=== PATIENT | female | born 1950 | race Caucasian/White ===

== ENCOUNTER → 2018-10-26 | Emergency (ER) | payer OTHER ==
[~2018-10-26] VITALS: Ht 149.9 cm; Wt 97.5 kg
[~2018-10-26] MED LIST: COZAAR100 MG; EVISTA60 MG; FORTAMET1000 MG; NORVASC10 MG; ZIAC 10/6.25 MG1 TAB
== END | disposition home or self-care (01) ==
LOC: ER 08:32
DX: S01.121A Laceration with foreign body of right eyelid and periocular area, initial encounter (principal); S80.02XA Contusion of left knee, initial encounter; W18.09XA Striking against other object with subsequent fall, initial encounter; Y93.89 Activity, other specified; Y92.488 Other paved roadways as the place of occurrence of the external cause; Y99.8 Other external cause status